=== PATIENT | male | born 1985 | race Caucasian/White ===

== ENCOUNTER → 2017-12-24 | Outpatient (CLI) | payer BC ==
[~2017-12-24] VITALS: Ht 182.9 cm; Wt 117.9 kg
[~2017-12-24] MED LIST: LISINOPRIL20 MG PO
--- NOTE | ~2017-12-24 | S ---
[facility] [place] [address] SURGICAL PATH RPT PROCEDURE Name: JESSENIA JIANG Room #: [facility].#: [id number] Admission: 12/24/17 Date of : 89 Discharge: Report #: [id number] Path Case #: [id number] PATHOLOGY REPORT COLLECTION DATE: 12/24/2017 RECEIVED DATE: 12/24/2017 SUBMITTING PHYS: Dr. Irvin James OTHER PHYS: Dr. Lissa Wooten SPECIMEN(S) RECEIVED: A.Rt liver bx * * * * * * * * * * * * FINAL DIAGNOSIS: Liver, right liver, needle core biopsy: - Less than 10% macrovesicular steatosis. - Focal mild non-specific portal chronic inflammation. - No evidence of hepatocellular iron present. - No significant fibrosis present. COMMENT: Examination shows less than 10% macrovesicular steatosis. The portal tracts show scattered rare foci of mild chronic inflammation. Lymphoid aggregates are not identified. The bile ducts appear unremarkable as well. A rare focus of lobular inflammation is identified along with rare portal lipogranuloma. Special stains are performed. Trichrome stain - Negative for periportal fibrosis or perisinusoidal fibrosis Reticulin stain - Intact hepatic reticulum Iron stain - Negative for hepatocellular iron or sinusoidal lining cell iron or within the macrophages PAS with and without diastase - Negative for intracytoplasmic globules in zone 1 If required and requested, the block can be sent to [facility] for iron quantification studies. (IUV:db; 12/27/2017) PATHOLOGIST: Cris Connolly M.D. REPORT ELECTRONICALLY SIGNED BY: Cris Connolly M.D. DATE/TIME: 12/27/2017 14:20 * * * * * * * * * * * * GROSS PATHOLOGY: Received in formalin labeled "Jessenia Jiang, right liver biopsy," are three distinct needle cores of thrasher soft tissue ranging from 1.3 [facility] [address] [place] [address] SURGICAL PATH RPT PROCEDURE Name: JESSENIA JIANG Room #: [facility].#: [id number] Admission: 12/24/17 Date of : 89 Discharge: Report #: [id number] Path Case #: [id number] to 1.5 cm in length, which are submitted entirely in cassette A1. (CAA; 12/24/2017) CLINICAL HISTORY: Elevated Liver Enzymes INITIAL CPT CODE(S): A; 15675, 14171, 21944, 84840, 21305, 00446 Professional services performed by [facility] at [facility] [address] , [place] [address] Technical services performed by [facility] at [address] [place] [address], [facility] [address] [address]. [facility] [address] [place] [address] PHONE: [phone] DIRECTOR: Mohamud Topete M.D. * * * END OF REPORT * * *
[2017-12-24 09:22] VITALS: BP 127/78
[2017-12-24 09:22] LABS: HEMATOCRIT 47.8 % (42.0-52.0); HEMOGLOBIN 15.9 gm/dL (14.0-18.0); MCH 28.7 pg (26.0-34.0); MCHC 33.2 g/dL (28.0-37.0); MCV 86.5 fL (80.0-100.0); RBC 5.53 mil/uL (4.50-6.00); WBC 5.5 thou/uL (4.0-11.0)
[2017-12-24 09:51] LABS: CALCIUM 9.4 mg/dL (8.5-10.1); CREATININE 1.4 mg/dL (0.7-1.3); POTASSIUM 4.3 mmol/L (3.5-5.1)
[2017-12-24 09:54] LABS: TOTAL BILIRUBIN 0.5 mg/dL (<0.1-1.0); TOTAL PROTEIN 7.9 g/dL (6.4-8.2)
[2017-12-24 10:52] LABS: INR 1.1; PROTIME 10.9 Seconds (9.3-11.4)
[2017-12-24 11:40] VITALS: BP 125/74
[2017-12-24 11:47] VITALS: BP 125/79
[2017-12-24 11:50] VITALS: BP 130/80; BP 134/81
[2017-12-24 11:57] VITALS: BP 138/78
== END | disposition home or self-care (01) ==
LOC: ULTRA 07:53 → SPEC 08:35 → ULTRA 16:03
PROVIDERS: Specialist
DX: K73.8 Other chronic hepatitis, not elsewhere classified (principal); K75.81 Nonalcoholic steatohepatitis (NASH); I10 Essential (primary) hypertension; Z79.899 Other long term (current) drug therapy